=== PATIENT | female | born 1995 | race Caucasian/White ===

== ENCOUNTER 2017-04-13 19:13 | Emergency (ER) | payer MEDICAID, OTHER ==
[~2017-04-13] VITALS: Ht 157.5 cm; Wt 81.6 kg
[2017-04-13 19:47] VITALS: BP 100/65
--- NOTE | 2017-04-13 19:50 | NUR ---
TO LOBBY, A/W JENNIFER HARMON ERMD NOTED
[2017-04-13 19:53] VITALS: BP 100/65
--- NOTE | 2017-04-13 20:50 | NUR ---
PATIENT CALLED TO BED , NO RESPONSE.
--- NOTE | 2017-04-13 20:56 | NUR ---
CALLED FOR THE SECOND TIME NO ANSWER.
--- NOTE | 2017-04-13 21:03 | NUR ---
CALLED FOR THE THIRD TIME, NO RESPONSE PATIENT LEFT WITHOUT BEING SEEN BY DR. REYES. NO FURTHER CARE PROVIDED FOR PATIENT.
== END 2017-04-13 21:03 | disposition left against medical advice (07) ==
LOC: MED 19:13
DX: F11.23 Opioid dependence with withdrawal (principal); Z53.21 Procedure and treatment not carried out due to patient leaving prior to being seen by health care provider